=== PATIENT | female | born 1955 | race Caucasian/White ===

== ENCOUNTER 2020-11-02 13:56 | Emergency (ER) | payer OTHER ==
[~2020-11-02] VITALS: Ht 162.6 cm; Wt 81.6 kg
[2020-11-02 14:19] VITALS: Ht 162.6 cm; Wt 81.6 kg
[2020-11-02 16:19] LABS: BASOPHIL % 0.6 % (0.2-1.3); PLATELET COUNT 229 x10^3mcL (179-408)
[2020-11-02 16:20] LABS: CALCIUM 8.6 mg/dL (8.5-10.1); CARBON DIOXIDE 30.1 mmol/L (21-32); POTASSIUM SERUM 3.9 mmol/L (3.5-5.1)
[2020-11-02 16:25] LABS: RED CELL DISTRIBUTION WIDTH 16.6 % (12.3-17.7)
[2020-11-02 16:26] LABS: ALBUMIN 3.4 g/dL (3.4-5.0); BILIRUBIN TOTAL 0.22 mg/dL (0.20-1.00)
[2020-11-02 17:43] LABS: microscopic required? YES; urine erythrocyte NEGATIVE (NEGATIVE)
[2020-11-02] MEDS ORDERED: DRAMAMINE LESS25 MG PO (19:51)
[2020-11-02 20:08] VITALS: BP 136/68
== END 2020-11-02 20:08 | disposition home or self-care (01) ==
LOC: ED 13:56
PROVIDERS: Student in an Organized Health Care Education/Training Program
DX: R42 Dizziness and giddiness (principal); R11.0 Nausea; R00.2 Palpitations
CPT/HCPCS: J2405; J7040; J8597